=== PATIENT | female | born 1955 ===

== ENCOUNTER 2019-10-14 08:30 | Outpatient (CLI) | payer OTHER | END 2019-10-14 08:34 | disposition home or self-care (01) | LOC: RAD 08:30 | DX: M51.27 Other intervertebral disc displacement, lumbosacral region (principal); M81.0 Age-related osteoporosis without current pathological fracture ==

== ENCOUNTER 2021-03-08 09:34 | Outpatient (CLI) | payer OTHER | END 2021-03-08 09:49 | disposition home or self-care (01) | LOC: RAD 09:34 | PROVIDERS: ATTEND Orthopaedic Surgery | DX: M79.651 Pain in right thigh (principal); M25.551 Pain in right hip ==

== ENCOUNTER → 2021-03-09 10:56 | Outpatient (CLI) | payer OTHER | END | disposition home or self-care (01) | LOC: RAD 10:56 | PROVIDERS: ATTEND Orthopaedic Surgery | DX: M54.5 Low back pain (principal) ==